=== PATIENT | male | born 1960 | race Caucasian/White ===

== ENCOUNTER 2022-05-17 20:04 | Observation (INO) ==
[2022-05-17 20:30] LABS: Basophils # 0.1 10*3/uL (0.0-0.2); Basophils % 0.8 % (0.0-0.8); Eosinophils # 0.2 10*3/uL (0.0-0.87); Eosinophils % 2.8 % (0.00-10.9); Hematocrit 36.3 VOL% (42.0-52.0); Hemoglobin 12.8 GM/DL (14.0-18.0); Immature Granulocytes % 1.5 %; Lymphocytes # 2.8 10*3/uL (1.4-4.0); Lymphocytes % 43.3 % (21.2-54.2); Mean Corpuscular HGB Conc 35.3 GM/DL (32-36); Mean Platelet Volume 9.4 FL (9.6-12.0); Monocytes # 0.5 10*3/uL (0.11-0.8); Neutrophils % 44.6 % (38.7-73.9); Platelet Count 170 T/CUMM (130-400); Red Blood Count 4.32 MC/CUMM (3.8-5.5); Red Cell Distribution Width 13.3 % (9.3-17.3); White Blood Count 6.5 T/CUMM (4-12)
[2022-05-17] MEDS ORDERED: NITROGLYCERIN SL 0.4 MG TABLET SL STA (21:33)
[2022-05-17 23:11] LABS: Alanine Aminotransferase 38 U/L (16-61); Alkaline Phosphatase 69 U/L (45-117); Aspartate Amino Transferase 21 U/L (0-37); Bilirubin,Total < 0.39 MG/DL (0.20-1.00); Blood Urea Nitrogen 18 MG/DL (7-18); Calcium 8.9 MG/DL (8.5-10.1); Carbon Dioxide 26 MMOL/L (21-32); Chloride 111 MMOL/L (98-107); Glucose 197 MG/DL (74-106); Osmolality,Calculated 292.8 MOS/KG (273-304); Potassium 3.7 MMOL/L (3.5-5.1); Sodium 144 MMOL/L (136-145); Total Protein 6.6 G/DL (6.4-8.2)
[2022-05-17] MEDS ORDERED: MAGNESIUM SULF RIDER 1 GM/100 ML PREMIX IV STA (23:15)
[2022-05-18] MEDS ORDERED: GLUCAGON 1 MG VIAL IM PRN (01:26)
[2022-05-18] MEDS ORDERED: ONDANSETRON 4 MG/2 ML VIAL IV PRN (01:29)
[2022-05-18] MEDS ORDERED: DEXTROSE 50% 25 GM/50 ML VIAL IV PRN (01:29)
[2022-05-18] MEDS ORDERED: DEXTROSE 10% 250 ML BAG IV PRN (01:37)
[2022-05-18] MEDS: LACTATED RINGERS 1,000 ML IV SCH ×2 (03:00→09:20)
[2022-05-18] MEDS: ACETAMINOPHEN 325 MG TABLET PO PRN ×3 (03:34→14:56)
[2022-05-18 05:53] LABS: Basophils # 0.1 10*3/uL (0.0-0.2); Basophils % 0.8 % (0.0-0.8); Eosinophils # 0.2 10*3/uL (0.0-0.87); Eosinophils % 2.9 % (0.00-10.9); Hematocrit 34.4 VOL% (42.0-52.0); Immature Granulocytes % 1.5 %; Immature Granulocytes Absolute 0.09 #; Lymphocytes # 2.9 10*3/uL (1.4-4.0); Lymphocytes % 47.3 % (21.2-54.2); Mean Corpuscular HGB Conc 34.9 GM/DL (32-36); Mean Corpuscular Volume 85.1 FL (87-102); Mean Platelet Volume 9.3 FL (9.6-12.0); Monocytes # 0.5 10*3/uL (0.11-0.8); Monocytes % 7.7 % (1.7-12.7); Neutrophils % 39.8 % (38.7-73.9); Platelet Count 138 T/CUMM (130-400); Red Blood Count 4.04 MC/CUMM (3.8-5.5); Red Cell Distribution Width 13.4 % (9.3-17.3); White Blood Count 6.1 T/CUMM (4-12)
[2022-05-18] MEDS: LEVOTHYROXINE 125 MCG TABLET PO SCH (05:56)
[2022-05-18 06:17] LABS: Alanine Aminotransferase 32 U/L (16-61); Albumin 3.7 G/DL (3.4-5.0); Alkaline Phosphatase 52 U/L (45-117); Aspartate Amino Transferase 15 U/L (0-37); Blood Urea Nitrogen 19 MG/DL (7-18); Calcium 9.1 MG/DL (8.5-10.1); Carbon Dioxide 26 MMOL/L (21-32); Chloride 110 MMOL/L (98-107); Cholesterol 157 MG/DL (50-200); Glucose 145 MG/DL (74-106); HDL Cholesterol 33 MG/DL (40-60); Potassium 3.5 MMOL/L (3.5-5.1); Risk Ratio 4.76; Sodium 143 MMOL/L (136-145); Total Protein 6.2 G/DL (6.4-8.2); Triglycerides 453 MG/DL (2-150); VLDL Cholesterol 90.6 MG/DL
[2022-05-18] MEDS ORDERED: MAGNESIUM SULF RIDER 4 GM/100 ML PREMIX IV PRN (07:32)
[2022-05-18] MEDS ORDERED: MAGNESIUM SULF RIDER 2 GM/50 ML PREMIX IV PRN (07:32)
[2022-05-18] MEDS: INSULIN LISPRO 100 UNIT/ML SUBCUT SCH ×4 (08:24→20:30)
[2022-05-18] MEDS: FENOFIBRATE 160 MG TABLET PO SCH (09:17)
[2022-05-18] MEDS: ASPIRIN EC 81 MG TABLET PO SCH (09:17)
[2022-05-18] MEDS: EZETIMIBE 10 MG TABLET PO SCH (09:18)
[2022-05-18] MEDS: CLOPIDOGREL 75 MG TABLET PO SCH (09:18)
[2022-05-18] MEDS: LOSARTAN 50 MG TABLET PO SCH (09:18)
[2022-05-18] MEDS: METOPROLOL SUCCINATE XL 100 MG TABLET PO SCH (09:18)
[2022-05-18] MEDS ORDERED: POTASSIUM CHLORIDE 20 MEQ TABLET PO ONE (11:24)
[2022-05-18] MEDS: ENOXAPARIN 40 MG/0.4 ML SYRINGE SUBCUT SCH (12:01)
[2022-05-18] MEDS: NITROGLYCERIN 2% OINT 1 INCH/GM PACK TOP SCH ×2 (13:24→17:16)
[2022-05-18] MEDS ORDERED: INSULIN GLARGINE 100 UNIT/ML SUBCUT SCH (21:00)
[2022-05-18] MEDS ORDERED: ROSUVASTATIN 20 MG TABLET PO SCH (21:00)
[2022-05-19] MEDS: NITROGLYCERIN 2% OINT 1 INCH/GM PACK TOP SCH ×3 (01:02→11:29)
[2022-05-19] MEDS: LEVOTHYROXINE 125 MCG TABLET PO SCH (06:06)
[2022-05-19 08:22] LABS: Basophils # 0.1 10*3/uL (0.0-0.2); Basophils % 0.9 % (0.0-0.8); Eosinophils # 0.2 10*3/uL (0.0-0.87); Eosinophils % 3.2 % (0.00-10.9); Hematocrit 40.5 VOL% (42.0-52.0); Hemoglobin 13.9 GM/DL (14.0-18.0); Immature Granulocytes % 1.1 %; Immature Granulocytes Absolute 0.08 #; Lymphocytes # 2.7 10*3/uL (1.4-4.0); Lymphocytes % 38.4 % (21.2-54.2); Mean Corpuscular HGB Conc 34.3 GM/DL (32-36); Mean Corpuscular Volume 85.8 FL (87-102); Mean Platelet Volume 9.2 FL (9.6-12.0); Monocytes # 0.5 10*3/uL (0.11-0.8); Monocytes % 7.6 % (1.7-12.7); Neutrophils % 48.8 % (38.7-73.9); Platelet Count 172 T/CUMM (130-400); Red Blood Count 4.72 MC/CUMM (3.8-5.5); Red Cell Distribution Width 13.3 % (9.3-17.3)
[2022-05-19 08:41] LABS: Calcium 9.3 MG/DL (8.5-10.1); Osmolality,Calculated 286.3 MOS/KG (273-304)
[2022-05-19] MEDS: INSULIN LISPRO 100 UNIT/ML SUBCUT SCH ×2 (09:55→13:38)
[2022-05-19] MEDS: FENOFIBRATE 160 MG TABLET PO SCH (09:55)
[2022-05-19] MEDS: EZETIMIBE 10 MG TABLET PO SCH (09:55)
[2022-05-19] MEDS: LOSARTAN 50 MG TABLET PO SCH (09:55)
[2022-05-19] MEDS: CLOPIDOGREL 75 MG TABLET PO SCH (09:55)
[2022-05-19] MEDS: ASPIRIN EC 81 MG TABLET PO SCH (09:55)
[2022-05-19] MEDS: METOPROLOL SUCCINATE XL 100 MG TABLET PO SCH (09:55)
[2022-05-19] MEDS ORDERED: ISOSORBIDE MONONITRATE 30 MG TABLET PO SCH (10:30)
[2022-05-19] MEDS: ENOXAPARIN 40 MG/0.4 ML SYRINGE SUBCUT SCH (11:12)
[2022-05-19 12:25] VITALS: BP 116/67
== END 2022-05-19 14:00 | disposition home or self-care (01) ==
LOC: N.ED 20:04 → N.TELEN 20:04
PROVIDERS: ADMIT Hospitalist; ATTEND Hospitalist

== ENCOUNTER 2022-06-13 16:47 | Observation (INO) ==
[2022-06-13 17:37] LABS: Albumin 4.3 G/DL (3.4-5.0); Bilirubin,Total 0.4 MG/DL (0.20-1.00); Calcium 9.7 MG/DL (8.5-10.1); Osmolality,Calculated 295.8 MOS/KG (273-304); Potassium 3.7 MMOL/L (3.5-5.1); Total Protein 6.7 G/DL (6.4-8.2)
[2022-06-13 17:44] LABS: Basophils % 0.5 % (0.0-0.8); Eosinophils # 0.2 10*3/uL (0.0-0.87); Eosinophils % 2.6 % (0.00-10.9); Hematocrit 35.8 VOL% (42.0-52.0); Hemoglobin 12.9 GM/DL (14.0-18.0); Immature Granulocytes Absolute 0.06 #; Lymphocytes # 2.3 10*3/uL (1.4-4.0); Lymphocytes % 39.9 % (21.2-54.2); Mean Corpuscular Volume 83.6 FL (87-102); Mean Platelet Volume 9.7 FL (9.6-12.0); Monocytes # 0.5 10*3/uL (0.11-0.8); Platelet Count 181 T/CUMM (130-400); Red Blood Count 4.28 MC/CUMM (3.8-5.5); Red Cell Distribution Width 13.2 % (9.3-17.3); White Blood Count 5.9 T/CUMM (4-12)
[2022-06-13] MEDS ORDERED: MORPHINE 2 MG/1 ML SYRINGE IV STA (17:44)
[2022-06-13] MEDS ORDERED: ONDANSETRON 4 MG/2 ML VIAL IV STA (17:44)
[2022-06-13 17:57] LABS: PT Patient Result 10.9 SECS (10.1-12.1); Partial Thromboplastin Time 22.8 SECS (23.7-32.9)
[2022-06-13] MEDS ORDERED: ACETAMINOPHEN 325 MG TABLET PO PRN (20:23)
[2022-06-13] MEDS ORDERED: ALBUTEROL 2.5 MG/3 ML NEB RESP TX PRN (20:23)
[2022-06-13] MEDS ORDERED: MORPHINE 2 MG/1 ML SYRINGE IV PRN (20:23)
[2022-06-13] MEDS ORDERED: hydrALAZINE 20 MG/1 ML VIAL IV PRN (20:23)
[2022-06-13] MEDS ORDERED: ONDANSETRON 4 MG/2 ML VIAL IV PRN (20:23)
[2022-06-13] MEDS ORDERED: GLUCAGON 1 MG VIAL IM PRN (20:23)
[2022-06-13] MEDS ORDERED: DEXTROSE 10% 250 ML BAG IV PRN (20:55)
[2022-06-13] MEDS ORDERED: ENOXAPARIN 40 MG/0.4 ML SYRINGE SUBCUT SCH (21:00)
[2022-06-13] MEDS ORDERED: ROSUVASTATIN 20 MG TABLET PO SCH (21:00)
[2022-06-13] MEDS ORDERED: FENOFIBRATE 160 MG TABLET PO SCH (21:00)
[2022-06-13] MEDS ORDERED: CLOPIDOGREL 75 MG TABLET PO SCH (21:00)
[2022-06-13] MEDS ORDERED: CHOLECALCIFEROL 5,000 UNIT TABLET PO SCH (21:00)
[2022-06-13] MEDS ORDERED: ASPIRIN EC 81 MG TABLET PO SCH (21:00)
[2022-06-13] MEDS: FERROUS SULFATE 325 MG TABLET PO SCH (21:15)
[2022-06-13] MEDS: INSULIN LISPRO 100 UNIT/ML SUBCUT SCH (21:24)
[2022-06-14 05:39] LABS: Basophils % 0.7 % (0.0-0.8); Eosinophils # 0.2 10*3/uL (0.0-0.87); Eosinophils % 2.9 % (0.00-10.9); Hematocrit 33.4 VOL% (42.0-52.0); Hemoglobin 11.6 GM/DL (14.0-18.0); Immature Granulocytes % 0.7 %; Immature Granulocytes Absolute 0.04 #; Lymphocytes # 2.4 10*3/uL (1.4-4.0); Lymphocytes % 44.1 % (21.2-54.2); Mean Corpuscular HGB Conc 34.7 GM/DL (32-36); Mean Corpuscular Volume 86.3 FL (87-102); Mean Platelet Volume 9.7 FL (9.6-12.0); Monocytes # 0.5 10*3/uL (0.11-0.8); Monocytes % 9.3 % (1.7-12.7); Neutrophils % 42.3 % (38.7-73.9); Platelet Count 145 T/CUMM (130-400); Red Blood Count 3.87 MC/CUMM (3.8-5.5); Red Cell Distribution Width 13.2 % (9.3-17.3); White Blood Count 5.5 T/CUMM (4-12)
[2022-06-14] MEDS ORDERED: LEVOTHYROXINE 125 MCG TABLET PO SCH (06:00)
[2022-06-14 06:03] LABS: Alanine Aminotransferase 29 U/L (16-61); Albumin 3.7 G/DL (3.4-5.0); Alkaline Phosphatase 62 U/L (45-117); Aspartate Amino Transferase 18 U/L (0-37); Bilirubin,Total < 0.39 MG/DL (0.20-1.00); Blood Urea Nitrogen 14 MG/DL (7-18); Calcium 9.3 MG/DL (8.5-10.1); Carbon Dioxide 26 MMOL/L (21-32); Chloride 113 MMOL/L (98-107); Cholesterol 105 MG/DL (50-200); Glucose 202 MG/DL (74-106); HDL Cholesterol 27 MG/DL (40-60); Osmolality,Calculated 292.8 MOS/KG (273-304); Potassium 3.9 MMOL/L (3.5-5.1); Risk Ratio 3.89; Sodium 144 MMOL/L (136-145); Total Protein 6.2 G/DL (6.4-8.2); Triglycerides 439 MG/DL (2-150); VLDL Cholesterol 87.8 MG/DL
[2022-06-14] MEDS: INSULIN LISPRO 100 UNIT/ML SUBCUT SCH ×2 (08:06→11:10)
[2022-06-14] MEDS ORDERED: EZETIMIBE 10 MG TABLET PO SCH (09:00)
[2022-06-14] MEDS ORDERED: LOSARTAN 50 MG TABLET PO SCH (09:00)
[2022-06-14] MEDS ORDERED: ISOSORBIDE MONONITRATE 30 MG TABLET PO SCH (09:00)
[2022-06-14] MEDS ORDERED: PANTOPRAZOLE 40 MG TABLET PO SCH (09:00)
[2022-06-14] MEDS ORDERED: METOPROLOL SUCCINATE XL 100 MG TABLET PO SCH (09:00)
[2022-06-14] MEDS: FERROUS SULFATE 325 MG TABLET PO SCH (09:26)
[2022-06-14] MEDS ORDERED: RANOLAZINE 500 MG TABLET PO SCH (09:30)
[2022-06-14 11:41] VITALS: BP 124/57
[2022-06-14] MEDS ORDERED: MAGNESIUM SULF RIDER 2 GM/50 ML PREMIX IV ONE (12:10)
[2022-06-14] MEDS ORDERED: MAGNESIUM OXIDE 400 MG TABLET PO SCH (21:00)
[2022-06-15] MEDS ORDERED: ISOSORBIDE MONONITRATE 60 MG TABLET PO SCH (09:00)
[2022-06-16] MEDS ORDERED: INJECTOR SUBCUT SCH (20:26)
[2022-06-16] MEDS ORDERED: SEMAGLUTIDE SUBCUT SCH (20:26)
== END 2022-06-14 15:12 | disposition home or self-care (01) ==
LOC: N.EDINP 16:47 → N.ED 16:47 → N.TELES 21:31
PROVIDERS: ADMIT Internal Medicine; ATTEND Internal Medicine